=== PATIENT | male | born 1970 | race Hispanic/Latino ===

== ENCOUNTER 2020-10-15 17:22 | Emergency (ER) | payer OTHER, SELFPAY ==
[2020-10-15] MEDS ORDERED: Ondansetron ODT 4 MG TAB ONE (19:15)
[2020-10-15] MEDS ORDERED: HYDROcodone/Acetaminophen 10/325 mg Tablet ONE (19:16)
== END 2020-10-15 19:30 | disposition home or self-care (01) ==
LOC: CSHERS 17:22
DX: S63.502A Unspecified sprain of left wrist, initial encounter (principal); Z87.891 Personal history of nicotine dependence; W01.0XXA Fall on same level from slipping, tripping and stumbling without subsequent striking against object, initial encounter
CPT/HCPCS: Q0162

== ENCOUNTER 2021-11-14 12:59 | Emergency (ER) | payer OTHER, SELFPAY ==
[2021-11-14] MEDS ORDERED: Acetaminophen 500 MG TAB ONE (14:14)
[2021-11-14] MEDS ORDERED: Ibuprofen 200 MG TAB ONE (14:14)
== END 2021-11-14 15:36 | disposition home or self-care (01) ==
LOC: CSHERS 12:59
DX: S93.402A Sprain of unspecified ligament of left ankle, initial encounter (principal); B34.9 Viral infection, unspecified; Z87.891 Personal history of nicotine dependence; X50.1XXA Overexertion from prolonged static or awkward postures, initial encounter; Y93.61 Activity, american tackle football

== ENCOUNTER 2022-10-20 16:04 | Emergency (ER) | payer OTHER, SELFPAY ==
[2022-10-20] MEDS ORDERED: Ipratropium Bromide 2.5 ml Neb ONE ×2 (16:38→18:52)
[2022-10-20] MEDS ORDERED: Albuterol 2.5 MG/0.5 ML NEB ONE ×2 (16:39→18:53)
[2022-10-20 17:28] LABS: #Basophils 0.1 10x3/uL (0.0-0.2); #Eosinphils 0.5 10x3/uL (0.0-0.5); #Monocytes 0.4 10x3/uL (0.0-1.1); #Neutrophils 3.3 10x3/uL (1.5-8.4); %Basophils 1.3 % (0.0-2.0); %Eosinophils 9.7 % (0.0-6.0); %Lymphocytes 22.9 % (18.0-47.0); %Monocytes 6.9 % (0.0-10.0); Hemoglobin 16.1 g/dL (13.5-17.5); Mean Corpuscular HGB CONC 34.6 g/dL (32.0-36.0); Mean Corpuscular Hemoglobin 30.4 pg (27.0-33.0); Mean Corpuscular Volume 87.7 fl (81.2-95.1); Mean Platelet Volume 11.3 fl (7.4-10.4); Platelet Count 255 10x3/uL (150-450); RBC Distribution Width 12.9 % (11.5-14.5); White Blood Cell (WBC) Count 5.5 10x3/uL (3.5-10.5)
[2022-10-20 17:43] LABS: ALT (SGPT) 135 U/L (8-55); AST (SGOT) 109 U/L (5-34); Albumin 4.5 g/dL (3.5-5.0); Alkaline Phosphatase 70 U/L (40-110); Anion Gap 16 mmol/L (10-20); BUN (Urea Nitrogen) 17 mg/dL (8.4-25.7); Bilirubin, Total 0.4 mg/dL (0.2-1.2); Calc. Creatinine Clearance 0 mL/min (70-130); Calcium 9.7 mg/dL (7.8-10.44); Carbon Dioxide 20 mmol/L (22-29); Chloride 106 mmol/L (98-107); Estimated GFR 75; Globulin 3.5 g/dL (2.4-3.5); Glucose 124 mg/dL (70-105); Potassium 4.3 mmol/L (3.5-5.1); Sodium 138 mmol/L (136-145)
[2022-10-20] MEDS ORDERED: predniSONE 20 MG TAB ONE (18:51)
== END 2022-10-20 19:14 | disposition home or self-care (01) ==
LOC: CSHERS 16:04
DX: J98.01 Acute bronchospasm (principal); Z87.891 Personal history of nicotine dependence
CPT/HCPCS: 36415; 71045; 80053; 84484; 85025; 93005; J7512; J7611